=== PATIENT | female | born 1950 | race Caucasian/White ===

== ENCOUNTER 2018-02-13 16:37 | Inpatient (IN) ==
[2018-02-13] MEDS ORDERED: Benzonatate 100 MG CAPSULE PO PRN (18:50)
[2018-02-13] MEDS ORDERED: *HR* Dextrose 50 % in Water (Syg) 50 ML SYRINGE IVP PRN (18:56)
[2018-02-13] MEDS ORDERED: D5% in Water 1,000 ML IVC PRN (18:56)
[2018-02-13] MEDS ORDERED: Dextrose Gel 15 GM/37.5 ML TUBE PO PRN ×2 (18:56)
[2018-02-13] MEDS: *HR* OxyCODONE Immed Rel 15 MG TABLET PO PRN (21:16)
[2018-02-13] MEDS: Insulin LISPRO 300 UNITS/3 ML VIAL SQ SCH (21:17)
[2018-02-13] MEDS ORDERED: Ondansetron ODT 4 MG TAB.RAPDIS SL PRN (22:14)
[2018-02-13] MEDS: *HR* LORazepam 1 MG TABLET PO SCH (23:11)
[2018-02-14] MEDS: *HR* Heparin 5,000 UNIT/ML VIAL SQ SCH ×2 (05:56→18:35)
[2018-02-14] MEDS: *HR* LORazepam 1 MG TABLET PO SCH ×3 (05:59→18:36)
[2018-02-14 07:14] LABS: Basophils % 0.2 %; Eosinophils # 0.1 K/mcL (0.0-0.6); Hematocrit 36.6 % (35.3-44.9); Hemoglobin 11.6 g/dL (11.5-15.4); Immature Granulocytes % 0.2 % (0-4); Mean Corpuscular HGB Conc 31.7 g/dL (31.6-35.5); Mean Corpuscular Hemoglobin 27.3 pg (28.0-33.3); Mean Corpuscular Volume 86.1 fL (83.0-100.0); Mean Platelet Volume 12.2 fL (9.4-12.4); Monocytes # 0.7 K/mcL (0.0-1.3); Monocytes % 5.2 %; Platelet Count 217 K/mcL (140-400); Red Blood Count 4.25 M/mcL (3.82-4.97); Red Cell Distribution Width 14.1 % (11.5-14.5); Segmented Neutrophils % 77.4 %
[2018-02-14 07:16] LABS: Neutrophils # 9.7 K/mcL (1.6-8.9)
[2018-02-14 07:20] LABS: INR 1.3; Prothrombin Time 14.8 Seconds (9.4-12.1)
[2018-02-14 07:22] LABS: Activated Partial Thrombo Time 36.1 Seconds (26.0-36.0)
[2018-02-14 07:31] LABS: Calcium 9.5 mg/dL (8.6-10.3); Potassium 4.3 mEq/L (3.5-5.1)
[2018-02-14] MEDS: Insulin LISPRO 300 UNITS/3 ML VIAL SQ SCH ×4 (08:40→22:04)
[2018-02-14] MEDS: Aspirin 81 MG TAB.CHEW PO SCH (09:31)
[2018-02-14] MEDS: Furosemide 40 MG TABLET PO SCH (09:31)
[2018-02-14] MEDS: Sennosides/Docusate Sodium TABLET PO SCH (09:32)
[2018-02-14] MEDS: Metoprolol XL (24 HR) Succ 50 MG TAB.ER.24H PO SCH (09:32)
--- NOTE | 2018-02-14 14:13 | Internal Med History&Physical ---
Date of Encounter: 02/14/18 Time of Encounter: 14:00 Assessment and Plan (1) Weakness Current visit: Yes Status: Acute This is apparently because of stress-induced cardiomyopathy. We will follow clinically and resume her activity, as possible. Physical and occupational therapy will be begun. (2) Type 2 diabetes mellitus Current visit: Yes Status: Acute Will allow patient to avoid diabetic diet, per her request. I told her I would have problem with this if her sugar is adequately controlled. I encouraged her to be active, as possible. Qualifiers: Diabetes mellitus care home insulin use: without senior compliance analyst use Diabetes mellitus complication status: without complication Qualified Code(s): E11.9 - Type 2 diabetes mellitus without complications (3) Sleep apnea Current visit: Yes Status: Acute I told her that we would watch sleep associated hypoxia with an oxygen monitor, at night. After discharge, I told her that she needs to investigate some way to treat this to increase the length of her life and her health in general. Qualifiers: Qualified Code(s): G47.30 - Sleep apnea, unspecified (4) Hypertension, essential Current visit: Yes Status: Acute Currently controlled, different medicines than at home. With her fast heart rate, I feel we should watch and may need to add more beta maira, see if she has signs of heart failure, etc. (5) CHF (congestive heart failure) Current visit: Yes Status: Acute This is apparently stress-induced and will need close follow-up. For now, patient will be on a nosalt diet and will continue Lasix with potassium and magnesium supplementation, as needed. She and her understand this may take 2-52 weeks to resolve. Qualifiers: Heart failure type: unspecified Heart failure chronicity: unspecified Qualified Code(s): I50.9 - Heart failure, unspecified (6) Colon cancer Current visit: Yes Status: Acute 4 years ago, treated with radiation and chemotherapy. Apparently, in remission. Will continue colostomy care and otherwise, seems to be in no acute distress, related. Qualifiers: Colon location: sigmoid Qualified Code(s): C18.7 - Malignant neoplasm of sigmoid colon (7) Anxiety Current visit: Yes Status: Acute She is on multiple medications, for this. (8) Right knee pain Current visit: Yes Status: Acute This is after surgery, after a fall, with ORIF and multiple screws and pins in place. This is chronically treated with opioids and she has been on 15 mg of oxycodone, for same. Qualifiers: Chronicity: chronic Qualified Code(s): M25.561 - Pain in right knee; G89.29 - Other chronic pain (9) Hyperlipidemia Current visit: Yes Status: Acute We will continue current statin for same. Qualifiers: Hyperlipidemia type: unspecified Qualified Code(s): E78.5 - Hyperlipidemia , unspecified (10) GERD (gastroesophageal reflux disease) Current visit: Yes Status: Acute We will continue omeprazole for same. Qualifiers: Esophagitis presence: esophagitis presence not specified Qualified Code(s) : K21.9 - Gastro-esophageal reflux disease without esophagitis Internal Medicine - H&P: HPI Chief complaint: Mouth pain; weakness Admitted From: Hospital to Hospital Transfer Plans for Post Hospital Care: Home History of present illness: Ms. Kwong is a 67 year old female who was in her usual state of health until about 2 weeks ago when she had total dental extraction. She returned to the hospital and was found to have not much problem and seemed to do well at home for about a day and a half. Thereafter, she had progressively worse dyspnea and was transferred from a local hospital, [facility], to [facility] in [place]. While there, she was found to have stress-induced cardiomyopathy and an ejection fraction was low at 20-25%. She underwent stress testing and was found to have no ischemia. She also had VQ scan which failed to show any sign of PE. Thyroid function was normal. She was felt to have cardiomyopathy as above and was also noted to have markedly diminished strength. She is now here because of functional weakness for rehabilitation and returned to function. 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 She underwent radiation treatment and chemotherapy. She has mild iron deficiency anemia which is associated but no other complications of treatment. She no longer has a vagina and anterior placement of urethra is noted but no UTIs or urinary incontinence. She denies hematuria. She has no other heart problems or heart murmur, other heart issues. She has a history of long-standing hypertension, treated with beta maira and ARB. This was changed to Vasotec at her recent hospitalization. She has mild chronic anemia with hemoglobin in the high nines, cannot take iron supplementation because of intolerance. 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 She would like to stop the Augmentin as it is causing severe GI upset, heartburn. I told her that we would stop this, use Bactroban topically in her nares for at least 7 days, reculture her nares after that is completed. She does not like taking the potassium supplementation required while she is on Lasix. I explained that Lasix and magnesium are often necessary to decrease the amount of potassium but she might need all 3. She also would like to get rid of her heparin shots this causes bruisability and other problems. I explained to her that we need to prevent blood clots and if she is able to walk with physical therapy over 150 feet per day, we would consider as this would be discontinued. She has a history of diabetes and this was treated with metformin although because of her recent renal dysfunction, this is been discontinued and she is now controlled with diet, alone. She has allergy to artificial sweeteners and therefore follows a low sugar diet, normal in hospital prior limits, which she adjusts herself. She has a history of migraines but is not having any for the last several years. These were severe sick headaches with light intolerance and nausea, noise intolerance, but no neurologic dysfunction. She has a history of sleep apnea and was prescribed a CPAP, about 10 years ago. She has had no follow-up since but was unable to tolerate the CPAP. She has not explored other ways of treating this or any other assessment. I spoke with her and her about this, at length. She has a history of bilateral ankle edema which is been present since her cancer treatment, about 4 years ago. This is worse since her hospitalization. Ever since a fall about 4 years ago, she has had right knee pain, after surgery. She states that this has plates, screws, pins in place. She has a chronic opioid prescription with oxycodone, 15 mg. She has history of hepatitis A at about 8 or 9 years old. This took a while to resolve but no ongoing side effects. Patient has no complaint of chest discomfort, dyspnea, orthopnea, breathing problems, palpitations, nausea or vomiting, constipation or diarrhea, other changes in bowel habits, heartburn, difficulty with urination, kidney problems or kidney stones, fevers chills or sweats, rash or itching, seizures, headache or lightheadedness, heat or cold intolerance, blood problems or anemia, or other new complaints, except as mentioned above. Review of systems is otherwise negative. Past Med Surg Social Fam HX - Past Medical History Medical history: asthma, cancer, diabetes, hypertension, migraine Psychiatric history: anxiety - Social History Smoking Status: Never smoker Smokeless Tobacco Status: No Alcohol use: none Drug use: none Internal Medicine - H&P: Meds 3 Allergy/AdvReac Type Severity Reaction Status Date / Time aspartame Allergy Vomiting Verified 02/13/18 17:40 [From Nutrasweet Aspartame] meperidine [From Demerol] Allergy Vomiting Verified 02/13/18 17:37 morphine Allergy Vomiting Verified 02/13/18 17:37 Sulfa (Sulfonamide Allergy Rash Verified 02/13/18 17:37 Antibiotics) - Constitutional Vitals: Temp Pulse Resp BP Pulse Ox 98.1 F 81 18 151/81 95 02/14/18 07:46 02/14/18 07:46 02/14/18 04:00 02/14/18 07:46 02/14/18 07:46 Internal Med - H&P Results - Labs CBC & Chem 7: 02/14/18 07:10 02/14/18 07:10 Labs: Short CBC 02/14/18 Range/Units 07:10 WBC 12.5 H (4.3-11.1) K/mcL Hgb 11.6 (11.5-15.4) g/dL Hct 36.6 (35.3-44.9) % Plt Count 217 (140-400) K/mcL Neutrophils # 9.7 H (1.6-8.9) K/mcL BMP 02/14/18 07:10 Sodium 135 L Potassium 4.3 Chloride 98 Carbon Dioxide 27 BUN 14 Creatinine 1.23 H Glucose 150 H Calcium 9.5
[2018-02-14] MEDS: Venlafaxine XR (24 HR) 75 MG CAP.ER.24H PO SCH (14:38)
[2018-02-14] MEDS ORDERED: cloNIDine HCl 0.1 MG TABLET PO PRN (16:22)
[2018-02-14] MEDS: *HR* OxyCODONE Immed Rel 15 MG TABLET PO PRN (16:47)
[2018-02-14] MEDS ORDERED: *HR* LORazepam 1 MG TABLET PO SCH (21:00)
[2018-02-15] MEDS: *HR* OxyCODONE Immed Rel 15 MG TABLET PO PRN ×4 (00:05→19:12)
[2018-02-15] MEDS: *HR* LORazepam 1 MG TABLET PO SCH ×4 (00:05→19:13)
[2018-02-15] MEDS: *HR* Heparin 5,000 UNIT/ML VIAL SQ SCH ×2 (06:43→19:36)
[2018-02-15] MEDS: Metoprolol XL (24 HR) Succ 50 MG TAB.ER.24H PO SCH (08:32)
[2018-02-15] MEDS: Furosemide 40 MG TABLET PO SCH (08:32)
[2018-02-15] MEDS: Insulin LISPRO 300 UNITS/3 ML VIAL SQ SCH ×4 (08:33→22:17)
[2018-02-15] MEDS: Sennosides/Docusate Sodium TABLET PO SCH (08:33)
[2018-02-15] MEDS: Aspirin 81 MG TAB.CHEW PO SCH (08:33)
[2018-02-15] MEDS: Venlafaxine XR (24 HR) 75 MG CAP.ER.24H PO SCH (08:33)
--- NOTE | 2018-02-15 14:49 | Internal Med Progress Note ---
Date of Encounter: 02/15/18 Time of Encounter: 14:47 - Assessment and plan (1) Weakness Current Visit: Yes Status: Acute Assessment and plan: She is doing better and I do not expect her to stay long. We will see how she does with therapy, tomorrow. (2) Type 2 diabetes mellitus Current Visit: Yes Status: Acute Assessment and plan: See comments yesterday. Recently, patient has been treating this on her own and sugar has been reasonably well-controlled. We will not use Janice Yanez sugar is consistently higher than 200. Qualifiers: Diabetes mellitus senior living insulin use: without long term care pharmacist use Diabetes mellitus complication status: without complication Qualified Code(s): E11.9 - Type 2 diabetes mellitus without complications (3) Sleep apnea Current Visit: Yes Status: Acute Assessment and plan: Apparently, no hypoxia last night but we will follow again tonight and make sure with the nurses that this is adequately documented. Again, expressed to patient that she needs to have this checked out and treated in some fashion. Qualifiers: Qualified Code(s): G47.30 - Sleep apnea, unspecified (4) Hypertension, essential Current Visit: Yes Status: Acute Assessment and plan: Clinically stable. We will continue current regimen and follow. (5) CHF (congestive heart failure) Current Visit: Yes Status: Acute Assessment and plan: Apparently, stress-induced and will continue to watch for symptoms but no findings, today. Qualifiers: Heart failure type: unspecified Heart failure chronicity: unspecified Qualified Code(s): I50.9 - Heart failure, unspecified (6) Colon cancer Current Visit: Yes Status: Acute Assessment and plan: Currently in remission. Qualifiers: Colon location: sigmoid Qualified Code(s): C18.7 - Malignant neoplasm of sigmoid colon (7) Anxiety Current Visit: Yes Status: Acute (8) Right knee pain Current Visit: Yes Status: Acute Assessment and plan: Chronic, will continue at home regimen plans. Qualifiers: Chronicity: chronic Qualified Code(s): M25.561 - Pain in right knee; G89.29 - Other chronic pain (9) Hyperlipidemia Current Visit: Yes Status: Acute Assessment and plan: Clinically stable. Qualifiers: Hyperlipidemia type: unspecified Qualified Code(s): E78.5 - Hyperlipidemia , unspecified (10) GERD (gastroesophageal reflux disease) Current Visit: Yes Status: Acute Assessment and plan: Clinically stable. We will continue home regimen and follow. Qualifiers: Esophagitis presence: esophagitis presence not specified Qualified Code(s) : K21.9 - Gastro-esophageal reflux disease without esophagitis - Subjective Interval history: Patient is without complaint. She is feeling well and is free of shortness of breath, chest pain, etc. She states that now she needs simply to get back on her feet. Patient has no complaint of chest discomfort, dyspnea, orthopnea, palpitations, nausea or vomiting, constipation or diarrhea, other changes in bowel habits, difficulty with urination, rash or itching, or other new complaints, except as mentioned above. Review of systems is otherwise negative. - Constitutional Vitals: Temp Pulse Resp BP Pulse Ox 98.0 F 87 21 149/86 96 02/15/18 07:30 02/15/18 07:30 02/15/18 07:30 02/15/18 07:30 02/15/18 07:30 Exam: Examination: (Except as mentioned above): General: In no apparent distress. Alert and oriented 3. Nondiaphoretic. Head: Atraumatic and normocephalic. Respiratory: No use of accessory muscles. Lungs are clear throughout. Normal airflow. Cardiovascular: Regular rate and rhythm without murmur appreciated. Heart rate is approximately 85-90. This is improved versus yesterday and I explained to patient. Abdomen: Bowel sounds are normal. No hepatosplenomegaly mass or tenderness appreciated. Obese and therefore difficult to palpate deeply. Ostomy is functioning well without abnormality or change in appearance. Extremities: No cyanosis clubbing or edema. Skin: Warm and non-diaphoretic with no new lesions noted. Internal Medicine: Result - Labs CBC & Chem 7: 02/14/18 07:10 02/14/18 07:10 - ABG Interpretation ABG results: PT/INR, D-dimer PT 14.8 Seconds (9.4-12.1) H 02/14/18 07:10 Consult Discharge Plan - Plan Referrals: Eda Alvarado CNP [Primary Care Provider] - LAKHWINDER GRAHAM [Other]
[2018-02-16] MEDS: *HR* OxyCODONE Immed Rel 15 MG TABLET PO PRN ×3 (00:36→11:38)
[2018-02-16] MEDS: *HR* LORazepam 1 MG TABLET PO SCH ×3 (00:36→11:39)
[2018-02-16 05:51] LABS: Basophils # 0.1 K/mcL (0.0-0.2); Basophils % 0.8 %; Eosinophils # 0.3 K/mcL (0.0-0.6); Eosinophils % 2.9 %; Hemoglobin 11.1 g/dL (11.5-15.4); Immature Granulocytes % 0.4 % (0-4); Lymphocytes # 3.5 K/mcL (0.6-4.6); Mean Corpuscular HGB Conc 31.7 g/dL (31.6-35.5); Mean Corpuscular Hemoglobin 27.2 pg (28.0-33.3); Mean Corpuscular Volume 85.8 fL (83.0-100.0); Mean Platelet Volume 11.7 fL (9.4-12.4); Monocytes # 0.9 K/mcL (0.0-1.3); Monocytes % 8.3 %; Platelet Count 241 K/mcL (140-400); Red Blood Count 4.08 M/mcL (3.82-4.97); Red Cell Distribution Width 14.3 % (11.5-14.5); Segmented Neutrophils % 56.6 %
[2018-02-16 05:52] LABS: Neutrophils # 6.3 K/mcL (1.6-8.9)
[2018-02-16 06:06] LABS: Calcium 9.7 mg/dL (8.6-10.3); Potassium 5.1 mEq/L (3.5-5.1)
[2018-02-16] MEDS: *HR* Heparin 5,000 UNIT/ML VIAL SQ SCH (06:41)
[2018-02-16 07:08] VITALS: BP 121/70
[2018-02-16] MEDS: Furosemide 40 MG TABLET PO SCH (08:06)
[2018-02-16] MEDS: Aspirin 81 MG TAB.CHEW PO SCH (08:06)
[2018-02-16] MEDS: Sennosides/Docusate Sodium TABLET PO SCH (08:06)
[2018-02-16] MEDS: Metoprolol XL (24 HR) Succ 50 MG TAB.ER.24H PO SCH (08:06)
[2018-02-16] MEDS: Venlafaxine XR (24 HR) 75 MG CAP.ER.24H PO SCH (08:06)
[2018-02-16] MEDS: Insulin LISPRO 300 UNITS/3 ML VIAL SQ SCH (08:08)
--- NOTE | 2018-02-16 11:22 | Discharge Summary ---
Orders not resulted at time of discharge: Pending orders 02/23/18 04:00 Basic Metabolic Panel MO Complete Blood Count [HEME] MO 03/02/18 04:00 Basic Metabolic Panel MO Complete Blood Count [HEME] MO 03/09/18 04:00 Basic Metabolic Panel MO Complete Blood Count [HEME] MO 03/16/18 04:00 Basic Metabolic Panel MO Complete Blood Count [HEME] MO 03/23/18 04:00 Basic Metabolic Panel MO Complete Blood Count [HEME] MO 03/30/18 04:00 Basic Metabolic Panel MO Complete Blood Count [HEME] MO 04/06/18 04:00 Basic Metabolic Panel MO Complete Blood Count [HEME] MO Date of Encounter: 02/16/18 Time of Encounter: 11:20 - Discharge Diagnosis (1) Weakness Priority: Primary Status: Acute Comments: continue therapy exercises. f/u with PCP in 1 week (2) Type 2 diabetes mellitus Priority: Secondary Status: Acute Comments: controlled. continue to monitor FSBS. humalog insulin per sliding scale. Qualifiers: Diabetes mellitus intermediate designer insulin use: without senior care use Diabetes mellitus complication status: without complication Qualified Code(s): E11.9 - Type 2 diabetes mellitus without complications (3) Hypertension, essential Priority: Secondary Status: Chronic Comments: controlled with current meds. f/u with PCP. monitor BP. (4) CHF (congestive heart failure) Priority: Primary Status: Acute Comments: stable. conitnue meds. f/u with PCP. Qualifiers: Heart failure type: unspecified Heart failure chronicity: unspecified Qualified Code(s): I50.9 - Heart failure, unspecified (5) Colon cancer Priority: Secondary Status: Chronic Comments: currently in remission Qualifiers: Colon location: sigmoid Qualified Code(s): C18.7 - Malignant neoplasm of sigmoid colon (6) Anxiety Priority: Secondary Status: Chronic Comments: continue current meds. f/u with PCP. (7) Right knee pain Priority: Secondary Status: Chronic Comments: continue pain meds as needed. f/u with PCP. Qualifiers: Chronicity: chronic Qualified Code(s): M25.561 - Pain in right knee; G89.29 - Other chronic pain Hospital course: Ms. Kwong is a 67 year old female Discharge discussed with: patient, nurse, social work - Time Spent with Patient Total time spent providing and/or coordinating discharge services: Less than 30 minutes - Discharge Medications Prescriptions: OxyCODONE Immed Rel [Roxicodone 15 MG] 15 mg PO Q6HR PRN 7 Days #20 tablet PRN Reason: Pain Amitriptyline [Elavil] 50 mg PO HS #14 tablet Atorvastatin [Lipitor] 40 mg PO HS #14 tablet Benzonatate [Tessalon] 100 mg PO TID PRN 5 Days #15 capsule PRN Reason: Cough Furosemide [Lasix] 40 mg PO DAILY #14 tablet Lisinopril [Zestril] 5 mg PO BID #28 tablet Metoprolol XL (24 HR) Succ [Toprol Xl] 100 mg PO DAILY #14 tab.er.24h Omeprazole [PriLOSEC] 20 mg PO DAILY@629 #14 capsule. Potassium Chloride 40 meq PO BIDWM #28 tab.er.prt Home Medications: Amitriptyline [Elavil] 50 mg PO HS #14 tablet 02/16/18 [Rx] Aspirin 81 mg PO DAILY tab.chew 02/16/18 [Rx] Atorvastatin [Lipitor] 40 mg PO HS #14 tablet 02/16/18 [Rx] Benzonatate [Tessalon] 100 mg PO TID PRN 5 Days #15 capsule 02/16/18 [Rx] Furosemide [Lasix] 40 mg PO DAILY #14 tablet 02/16/18 [Rx] Insulin LISPRO [HumaLOG] 0 units SQ HS #0 vial 02/16/18 [Rx] Insulin LISPRO [HumaLOG] 0 units SQ TIDAC #0 vial 02/16/18 [Rx] Lisinopril [Zestril] 5 mg PO BID #28 tablet 02/16/18 [Rx] Metoprolol XL (24 HR) Succ [Toprol Xl] 100 mg PO DAILY #14 tab.er.24h 02/16/18 [ Rx] Mupirocin [Bactroban Oint] 1 appl TP BID tube 02/16/18 [Rx] Omeprazole [PriLOSEC] 20 mg PO DAILY@30 #14 capsule. 02/16/18 [Rx] OxyCODONE Immed Rel [Roxicodone 15 MG] 15 mg PO Q6HR PRN 7 Days #20 tablet 02/16 [Rx] Potassium Chloride 40 meq PO BIDWM #28 tab.er.prt 07/23/18 [Rx] Sennosides/Docusate Sodium [Senna Plus] 1 each PO DAILY tablet 02/16/18 [Rx] Allergies/Adverse Reactions: 3 Allergy/AdvReac Type Severity Reaction Status Date / Time aspartame Allergy Vomiting Verified 02/13/18 17:40 [From Nutrasweet Aspartame] meperidine [From Demerol] Allergy Vomiting Verified 02/13/18 17:37 morphine Allergy Vomiting Verified 02/13/18 17:37 Sulfa (Sulfonamide Allergy Rash Verified 02/13/18 17:37 Antibiotics) Date of admission: 02/13/18 16:40 Primary care physician: Eda Alvarado, [employer] Consults: 02/13/18 17:58 Consult to Nutrition [CONS] Routine Comment: Consulting Provider: NUTRITION Reason for Dietary Consult: Diet Education 02/13/18 18:26 Consult to Occupational Therapy [CONS] Routine Comment: Evaluate, develop and implement POC Reason for Consult: Deconditioning s/p fluid overload. Does patient have active BEDREST order?: No Is patient medically & hemodynamically stable?: Yes Consult to Physical Therapy [CONS] Routine Comment: Evaluate, develop and implement POC Reason for Consult: Deconditioning s/p fluid overload. Does patient have active BEDREST order?: No Is patient medically & hemodynamically stable?: Yes Consult to Recreational Therapy [CONS] Routine Comment: Evaluate, develop and implement POC Consult to Electronic Repair Troubleshooter [CONS] Routine Reason for SW Consult: Deconditioning s/p fluid overload. Consult to Speech Therapy [CONS] Routine Comment: Evaluate, develop and implement POC Reason for Consult: speech impairment Call Completed: Yes Discharging clinician: Reji Mcmillan Anticipated date of discharge: 02/16/18 - Constitutional Vitals: Temp Pulse Resp BP Pulse Ox 97.5 F L 84 16 121/70 98 02/16/18 07:00 02/16/18 07:00 02/16/18 07:00 02/16/18 07:00 02/16/18 07:00 General appearance: Present: cooperative, A&O X 3, pleasant, no acute distress, answers questions appropriately - Head Head exam: Present: atraumatic, normocephalic - Eye Eye exam: Present: PERRL, conjuntiva pink, sclera anicteric Pupils: Present: PERRL - Neck Neck exam general surgery: Present: supple, trachea midline. Absent: lymphadenopathy - Respiratory Respiratory exam: Present: CTAB. Absent: accessory muscle use, rales, rhonchi, wheezes - Cardiovascular Cardiovascular exam: Present: RRR, +S1, +S2. Absent: diastolic murmur, gallop, rubs, systolic murmur - GI/Abdominal GI/Abdominal exam: Present: normal bowel sounds, soft, no peritoneal signs. Absent: distended, tenderness - Extremities Exam Extremities exam: Present: warm, radial pulses palpable and symmetrical. Absent : calf tenderness, cyanotic, pedal edema - Neurological Exam Neurological exam: Present: CN II-XII intact, oriented X3, no focal deficits. Absent: pronater drift, facial droop, speech deficit - Skin Skin exam: Present: dry, intact - Patient Status Disposition: Home, Self-Care Condition: Good Functional capacity at discharge: uses cane/walker Overall status at discharge: patient is progressing back to baseline - Discharge Instructions Instructions: Suture Care (DC), How to Check Your Blood Sugar (DC), Giving an Insulin Injection (DC) Follow Up With: LAKHWINDER GRAHAM [Other] Eda Alvarado, ERIC [Primary Care Provider] - 02/24/18 1:00 pm (foloow up with primary physician) - Diet and Activity Activity: as per physical therapy Diet: diabetic diet
== END 2018-02-16 12:05 | disposition home or self-care (01) | DRG 946 ==
LOC: INPGRE 16:40